=== PATIENT | female | born 1960 | race Caucasian/White ===

== ENCOUNTER → 2016-06-28 | Outpatient (CLI) | payer MEDICAID | DX: Z13.6 Encounter for screening for cardiovascular disorders (principal) ==

== ENCOUNTER 2016-07-07 10:53 | Outpatient (CLI) | payer MEDICAID | END 2016-07-07 10:54 | disposition home or self-care (01) | DX: R07.89 Other chest pain (principal) ==

== ENCOUNTER 2016-07-20 12:29 | Outpatient (CLI) | payer MEDICAID | END 2016-07-20 12:30 | disposition home or self-care (01) | DX: J43.9 Emphysema, unspecified (principal); J84.10 Pulmonary fibrosis, unspecified ==

== ENCOUNTER 2016-11-19 08:00 | Outpatient (CLI) | payer MEDICAID ==
[2016-11-19 18:56] LABS: PH,URINE 5.5 PH (5.0-7.5)
[2016-11-19 19:12] LABS: BILIRUBIN,URINE NEGATIVE (NEGATIVE)
[2016-11-19 19:13] LABS: UR CULTURE IF IND INDICATED; WBC,URINE 0-3 /HPF (0-5)
== END 2016-11-19 08:01 | disposition home or self-care (01) ==
LOC: LAB.R 08:00
PROVIDERS: ATTEND Nurse Practitioner Family
DX: R10.9 Unspecified abdominal pain (principal)
CPT/HCPCS: 81001; 87086

== ENCOUNTER 2016-11-23 13:13 | Outpatient (CLI) | payer MEDICAID ==
--- NOTE | 2016-11-23 18:05 | XRAY Report ---
ABDOMEN FILM: 11/23/2016 HISTORY: Abdominal pain. COMPARISON: None. FINDINGS: Surgical clips right upper quadrant. Nonspecific bowel gas pattern without evidence of il eus, obstruction or free air. No bone destruction. Phleboliths in the pelvis. Otherwise, no defini te abnormal calcification seen. IMPRESSION: NONSPECIFIC ABDOMEN WITH A MODERATE AMOUNT OF FECAL MATERIAL THROUGHOUT THE COLON. JOB #: [id number] EXT JOB #:[id number]
== END 2016-11-23 13:14 | disposition home or self-care (01) ==
LOC: DI.S 13:13
PROVIDERS: ATTEND Nurse Practitioner Family
DX: R10.9 Unspecified abdominal pain (principal)
CPT/HCPCS: 74000

== ENCOUNTER 2018-04-06 09:32 | Outpatient (CLI) | payer MEDICAID ==
[2018-04-06 18:28] LABS: BASOPHILS % (AUTO) 0.6 %; EOSINOPHILS # (AUTO) 0.1 10^3/uL (0.0-0.7); EOSINOPHILS % (AUTO) 1.1 %; HGB - HEMOGLOBIN 14.8 g/dL (12.0-16.0); LYMPHOCYTES % (AUTO) 27.1 %; MEAN CORPUSCULAR HEMOGLOBIN 30.5 pg (27.0-31.0); MEAN CORPUSCULAR HGB CONC 32.1 g/dL (32.0-36.0); MEAN PLATELET VOLUME 9.3 fL (7.9-10.8); MONOCYTES # (AUTO) 0.5 10^3/uL (0.0-1.0); MONOCYTES % (AUTO) 6.4 %; NEUTROPHILS # (AUTO) 4.8 10^3/uL (1.5-6.6); NEUTROPHILS % (AUTO) 64.8 %; PLT - PLATELET COUNT 301 10^3/uL (130-450); RED BLOOD COUNT 4.86 10^6/uL (4.20-5.40); RED CELL DISTRIBUTION WIDTH 14.3 % (12.0-15.0); WHITE BLOOD COUNT 7.4 x10^3/uL (4.8-10.8)
[2018-04-06 18:57] LABS: ALBUMIN 4.3 g/dL (3.2-5.5); ALBUMIN/GLOBULIN RATIO 1.4 (1.0-2.2); ALKALINE PHOSPHATASE 64 IU/L (42-121); ALT ALANINE AMINOTRANSFERASE 20 IU/L (10-60); AST ASPARTATE AMINOTRANSFERASE 22 IU/L (10-42); BILIRUBIN,TOTAL 0.6 mg/dL (0.2-1.0); BUN - BLOOD UREA NITROGEN 17 mg/dL (6-20); CALCIUM 9.4 mg/dL (8.5-10.3); CARBON DIOXIDE - CO2 25 mmol/L (21-32); CHLORIDE 102 mmol/L (101-111); CHOL/HDL RATIO 2.3 (<4.4); CHOLESTEROL 205 mg/dL; CREATININE 0.8 mg/dL (0.4-1.0); GFR - MDRD 74 (>89); GLUCOSE 115 mg/dL (70-100); HDL CHOLESTEROL 91 mg/dL; LDL CHOLESTEROL,CALCULATED 102 mg/dL; LDL/HDL RATIO 1.1 (<4.4); SODIUM 138 mmol/L (135-145); TOTAL PROTEIN 7.3 g/dL (6.7-8.2); VLDL CHOLESTEROL 12 mg/dL
[2018-04-06 19:42] LABS: HB2 TOTAL 15.3 g/dL; HEMOGLOBIN A1C 0.58 g/dL; HEMOGLOBIN A1C % 5.6 % (4.6-6.2)
== END 2018-04-06 09:33 | disposition home or self-care (01) ==
LOC: LAB.F 09:32
PROVIDERS: ATTEND Nurse Practitioner Family
DX: N95.1 Menopausal and female climacteric states (principal); Z13.6 Encounter for screening for cardiovascular disorders
CPT/HCPCS: 36415; 80050; 80061; 83036; 83721

== ENCOUNTER 2019-12-04 08:00 | Outpatient (CLI) | payer MEDICAID ==
[2019-12-04 14:58] LABS: BASOPHILS % (AUTO) 0.5 %; EOSINOPHILS # (AUTO) 0.2 10^3/uL (0.0-0.7); HGB - HEMOGLOBIN 13.6 g/dL (12.0-16.0); LYMPHOCYTES % (AUTO) 27.2 %; MEAN CORPUSCULAR HEMOGLOBIN 30.6 pg (27.0-31.0); MEAN CORPUSCULAR VOLUME 95.5 fL (81.0-99.0); MEAN PLATELET VOLUME 10.4 fL (7.9-10.8); MONOCYTES # (AUTO) 0.5 10^3/uL (0.0-1.0); MONOCYTES % (AUTO) 6.2 %; NEUTROPHILS # (AUTO) 4.8 10^3/uL (1.5-6.6); NEUTROPHILS % (AUTO) 63.8 %; PLT - PLATELET COUNT 310 10^3/uL (130-450); RED BLOOD COUNT 4.45 10^6/uL (4.20-5.40); RED CELL DISTRIBUTION WIDTH 14.5 % (12.0-15.0); WHITE BLOOD COUNT 7.5 x10^3/uL (4.8-10.8)
[2019-12-04 15:26] LABS: ALBUMIN 3.9 g/dL (3.2-5.5); ALBUMIN/GLOBULIN RATIO 1.3 (1.0-2.2); BILIRUBIN,TOTAL 0.5 mg/dL (0.2-1.0); CALCIUM 8.9 mg/dL (8.5-10.3); CREATININE 0.8 mg/dL (0.4-1.0); TOTAL PROTEIN 6.9 g/dL (6.7-8.2)
== END 2019-12-04 23:59 | disposition home or self-care (01) ==
LOC: LAB.S 08:00
PROVIDERS: ATTEND Physician Assistant Medical
DX: R11.2 Nausea with vomiting, unspecified (principal)
CPT/HCPCS: 36415; 80053; 82150; 83690; 85025

== ENCOUNTER 2019-12-19 14:31 | Outpatient (CLI) | payer MEDICAID ==
[2019-12-19] MEDS ORDERED: IOVERSOL 320 100 ML VIAL IVP ONE ×2 (14:47→17:36)
[2019-12-19] MEDS ORDERED: IOVERSOL 320 50 ML VIAL ONE (14:47)
--- NOTE | 2019-12-19 16:18 | CT Report ---
PROCEDURE: ABDOMEN/PELVIS W/WO INDICATIONS: ABDOMINAL LUMP, NAUSEA W/ VOMITTING CONTRAST: IV CONTRAST: Optiray 320 ml: 100 PO CONTRAST: Optiray 320 ml50 TECHNIQUE: After the administration of intravenous contrast, 5 mm thick sections acquired from the diaphragms to the symphysis. 5 mm thick coronal and sagittal reformats were acquired. For radiation dose reducti on, the following was used: automated exposure control, adjustment of mA and/or kV according to simone ent size. COMPARISON: None. FINDINGS: Image quality: Excellent. Lung bases: Lung bases are clear. Heart size is normal. Urinary system: Both kidneys are normal in size, without hydronephrosis or nephrolithiasis on pre-co ntrast images. No perinephric fat stranding. There is normal bilateral renal enhancement. Renal ca lyces appear normal in morphology when filled with contrast. Opacified portions of both ureters demo nstrate normal caliber. Bladder wall thickness is normal. No calcified bladder stones. Other solid organs: Liver and spleen are normal in size and enhancement. Mild hepatic steatosis. Gal lbladder is surgically absent Biliary system is non dilated. Pancreas enhances normally. No adrena l nodules. Peritoneum and bowel: Bowel loops demonstrate normal wall thickness and caliber. No free fluid or a ir. Nodes and vessels: No retroperitoneal or mesenteric adenopathy by size criteria. Aorta and inferior vena cava are normal in size. Abdominal wall: Slightly superior and to the right of the umbilicus is a ventral hernia containing fa t and a small nodular density. Reference image 45/6. There is also a small periumbilical hernia conta ining fat. Pelvis: No pathologic free pelvic fluid. Bilateral inguinal hernias containing fat. There is shotty bilateral inguinal adenopathy. Findings include a somewhat rounded appearing lymph node in the left g roin on image 91/6 which measures 1.5 cm. The other lymph nodes have a benign appearance. Bones: No suspicious bony lesions. No vertebral body compression fractures. IMPRESSION: 1. Small ventral hernia slightly above the umbilicus with a small nodular density present within it. 2. Periumbilical hernia, bilateral inguinal hernias. 3. Shotty bilateral inguinal adenopathy. A single 1.5 cm lymph node in the left inguinal region as a round appearance. Consider further evaluation of this lymph node under ultrasound. 4. Mild hepatic steatosis. Reviewed by: Eleno Juarez MD on 12/19/2019 4:17 PM PDT Approved by: Eleno Juarez MD on 12/19/2019 4:17 PM PDT Station ID: [id number]
[2019-12-19] MEDS ORDERED: IOVERSOL 320 50 ML VIAL PO ONE (17:36)
== END 2019-12-19 14:32 | disposition home or self-care (01) ==
LOC: DI 14:31
PROVIDERS: ATTEND Physician Assistant Medical
DX: R19.00 Intra-abdominal and pelvic swelling, mass and lump, unspecified site (principal); R11.2 Nausea with vomiting, unspecified; K43.9 Ventral hernia without obstruction or gangrene; K40.20 Bilateral inguinal hernia, without obstruction or gangrene, not specified as recurrent; K42.9 Umbilical hernia without obstruction or gangrene; R59.0 Localized enlarged lymph nodes; K76.0 Fatty (change of) liver, not elsewhere classified
CPT/HCPCS: 74178; Q9967

== ENCOUNTER 2019-12-31 13:14 | Outpatient (CLI) | payer MEDICAID ==
--- NOTE | 2019-12-31 15:25 | MRI Report ---
PROCEDURE: Brain W/O INDICATIONS: VERTIGO, HEADACHE TECHNIQUE: Noncontrast axial T1 spin echo, axial T2 fast spin echo, sagittal and axial FLAIR, coronal T2 fast sp in echo, axial gradient echo, axial diffusion and ADC through the brain. COMPARISON: None. FINDINGS: Image quality: Diagnostic, with note made of motion artifact. CSF Spaces: Basal cisterns are patent. No extra-axial fluid collections. Ventricles are normal in size and shape. Brain: No intracranial masses or hemorrhage. Hanson/white matter interface is normal. Brainstem appe ars normal. Within the juxtacortical white matter of the right temporal lobe, there is a poorly defin ed area of increased T2-weighted signal, as on series 701 image 13. A similar-appearing focus can be seen within the juxtacortical white matter of the right frontal lobe, as on series 701 image 13. An a dditional juxtacortical T2 hyperintense white matter lesion can be seen within the left frontal lobe superiorly, as on series 701 image 20. Diffusion-weighted images demonstrate no acute ischemic insult . No chronic ischemic insults. Normal intravascular flow voids are present. Skull and face: Calvarium has normal marrow signal. Orbits appear normal. Sinuses: Sinuses and mastoids are clear. IMPRESSION: 3 juxtacortical white matter lesions are seen. In a patient of this age, differential diagnosis inclu christian a mild demyelinating process (including multiple sclerosis) and chronic small vessel ischemic lacey nge. Metastatic disease is also possible. If clinically appropriate, please consider a follow-up brain MRI, performed with IV contrast. Reviewed by: Onofre Kent MD on 12/31/2019 2:24 PM NELSON Approved by: Onofre Kent MD on 12/31/2019 2:24 PM [id number] Station ID: [id number]
== END 2019-12-31 13:15 | disposition home or self-care (01) ==
LOC: DI 13:14
PROVIDERS: ATTEND Family Medicine
DX: R90.82 White matter disease, unspecified (principal); R59.9 Enlarged lymph nodes, unspecified; K43.9 Ventral hernia without obstruction or gangrene
CPT/HCPCS: 70551; 76705; 76857

== ENCOUNTER 2019-12-31 13:18 | Outpatient (CLI) | payer MEDICAID ==
--- NOTE | 2019-12-31 17:15 | Ultrasound Report ---
PROCEDURE: Pelvic Limited or F/U INDICATIONS: LEFT INGUINAL NODULE/LYMPH NODE TECHNIQUE: Real-time transabdominal scanning was performed of the pelvic organs, with image documentation. COMPARISON: CT abdomen pelvis, 12/19/2019. FINDINGS: Ultrasound was performed in the left groin. There are several lymph nodes in the left groin with the largest node measures 1.1 x 1.2 x 1.2 cm, which demonstrates normal morphology with fatty h ilum. IMPRESSION: Mildly enlarged left inguinal lymph nodes are identified, which are most likely reactive . Recommend clinical follow-up. Reviewed by: Rere Bustos MD on 12/31/2019 5:13 PM PDT Approved by: Rere Bustos MD on 12/31/2019 5:13 PM PDT Station ID: [id number]
--- NOTE | 2019-12-31 18:17 | Ultrasound Report ---
PROCEDURE: Abdomen Limited INDICATIONS: ABDOMINAL MASS, UMBILICAL HERNIA TECHNIQUE: Real-time focused scanning was performed of the abdomen, with image documentation. COMPARISON: CT abdomen and pelvis, 12/19/2019 FINDINGS: There is a small nonreducible fat-containing ventral hernia at midline just above the umbi licus measuring 1.6 x 0.9 x 1.4 cm. Superior to this hernia, there is a second, larger ventral hernia measuring 3.3 x 1.7 x 3.7 cm. Withi n the hernia, there is a small cystic area. A 8 x 7 mm hypoechoic nodule noted in the hernia sac was internal vascularity. This hernia is also nonreducible. IMPRESSION: 1. Two ventral hernias are identified above umbilicus at midline as described. Reviewed by: Rere Bustos MD on 12/31/2019 6:16 PM PDT Approved by: Rere Bustos MD on 12/31/2019 6:16 PM PDT Station ID: [id number]
== END 2019-12-31 13:19 | disposition home or self-care (01) ==
LOC: DI 13:18
PROVIDERS: ATTEND Registered Nurse
DX: R59.9 Enlarged lymph nodes, unspecified (principal); K43.9 Ventral hernia without obstruction or gangrene
CPT/HCPCS: 76705; 76857

== ENCOUNTER 2021-07-06 08:00 | Outpatient (CLI) | payer MEDICAID ==
[2021-07-06 20:16] LABS: BASOPHILS # (AUTO) 0.1 10^3/uL (0.0-0.1); BASOPHILS % (AUTO) 0.7 %; EOSINOPHILS # (AUTO) 0.1 10^3/uL (0.0-0.7); EOSINOPHILS % (AUTO) 1.3 %; HCT - HEMATOCRIT 47.7 % (37.0-47.0); LYMPHOCYTES # (AUTO) 2.7 10^3/uL (1.5-3.5); LYMPHOCYTES % (AUTO) 32.7 %; MEAN CORPUSCULAR HEMOGLOBIN 29.4 pg (27.0-31.0); MEAN CORPUSCULAR HGB CONC 31.4 g/dL (32.0-36.0); MEAN CORPUSCULAR VOLUME 93.3 fL (81.0-99.0); MEAN PLATELET VOLUME 11.3 fL (7.9-10.8); MONOCYTES # (AUTO) 0.5 10^3/uL (0.0-1.0); MONOCYTES % (AUTO) 6.1 %; NEUTROPHILS # (AUTO) 4.9 10^3/uL (1.5-6.6); PLT - PLATELET COUNT 310 10^3/uL (130-450); RED BLOOD COUNT 5.11 10^6/uL (4.20-5.40); RED CELL DISTRIBUTION WIDTH 14.8 % (12.0-15.0); WHITE BLOOD COUNT 8.3 x10^3/uL (4.8-10.8)
[2021-07-06 20:25] LABS: ALBUMIN 4.2 g/dL (3.2-5.5); ALBUMIN/GLOBULIN RATIO 1.3 (1.0-2.2); BILIRUBIN,TOTAL 0.4 mg/dL (0.2-1.0); CALCIUM 9.5 mg/dL (8.5-10.3); CREATININE 0.9 mg/dL (0.4-1.0); POTASSIUM 4.3 mmol/L (3.5-5.0); TOTAL PROTEIN 7.5 g/dL (6.7-8.2)
== END 2021-07-06 23:59 | disposition home or self-care (01) ==
LOC: LAB.S 08:00
PROVIDERS: ATTEND Physician Assistant Medical
DX: Z51.81 Encounter for therapeutic drug level monitoring (principal); G62.9 Polyneuropathy, unspecified; Z79.899 Other long term (current) drug therapy
CPT/HCPCS: 36415; 80053; 82607; 85025

== ENCOUNTER 2022-03-05 14:41 | Outpatient (CLI) | payer MEDICAID ==
[2022-03-05 19:58] LABS: BASOPHILS % (AUTO) 0.4 %; EOSINOPHILS # (AUTO) 0.2 10^3/uL (0.0-0.7); HCT - HEMATOCRIT 42.9 % (37.0-47.0); HGB - HEMOGLOBIN 13.2 g/dL (12.0-16.0); LYMPHOCYTES # (AUTO) 2.7 10^3/uL (1.5-3.5); LYMPHOCYTES % (AUTO) 34.9 %; MEAN CORPUSCULAR HEMOGLOBIN 29.2 pg (27.0-31.0); MEAN CORPUSCULAR HGB CONC 30.8 g/dL (32.0-36.0); MEAN CORPUSCULAR VOLUME 94.9 fL (81.0-99.0); MEAN PLATELET VOLUME 11.1 fL (7.9-10.8); MONOCYTES # (AUTO) 0.7 10^3/uL (0.0-1.0); MONOCYTES % (AUTO) 9.4 %; NEUTROPHILS # (AUTO) 4.2 10^3/uL (1.5-6.6); PLT - PLATELET COUNT 359 10^3/uL (130-450); RED BLOOD COUNT 4.52 10^6/uL (4.20-5.40); RED CELL DISTRIBUTION WIDTH 14.8 % (12.0-15.0); WHITE BLOOD COUNT 7.9 x10^3/uL (4.8-10.8)
[2022-03-05 20:12] LABS: ALBUMIN 3.5 g/dL (3.2-5.5); ALBUMIN/GLOBULIN RATIO 1.1 (1.0-2.2); BILIRUBIN,TOTAL 0.5 mg/dL (0.2-1.0); CALCIUM 8.7 mg/dL (8.5-10.3); CREATININE 0.8 mg/dL (0.4-1.0); POTASSIUM 4.1 mmol/L (3.5-5.0); TOTAL PROTEIN 6.8 g/dL (6.7-8.2)
== END 2022-03-05 14:42 | disposition home or self-care (01) ==
LOC: LAB.S 14:41
PROVIDERS: ATTEND Registered Nurse
DX: R19.00 Intra-abdominal and pelvic swelling, mass and lump, unspecified site (principal)
CPT/HCPCS: 36415; 80053; 83690; 85025